=== PATIENT | female | born 1995 | race Caucasian/White ===

== ENCOUNTER 2017-06-03 23:49 | Emergency (ER) | payer MEDICAID ==
[~2017-06-03] VITALS: Ht 152.4 cm; Wt 68.0 kg
[2017-06-03 23:50] VITALS: BP 115/60
== END 2017-06-04 00:35 | disposition left against medical advice (07) ==
LOC: ER 23:49
DX: R10.9 Unspecified abdominal pain (principal); R19.7 Diarrhea, unspecified; Z53.21 Procedure and treatment not carried out due to patient leaving prior to being seen by health care provider

== ENCOUNTER 2022-06-15 11:34 | Observation (INO) | payer MEDICAID ==
[~2022-06-15] VITALS: Ht 157.5 cm; Wt 68.9 kg
== END 2022-06-15 13:50 | disposition home or self-care (01) ==
LOC: 8 EST LDRP 11:34
PROVIDERS: ADMIT Obstetrics & Gynecology; ATTEND Obstetrics & Gynecology
DX: O36.5930 Maternal care for other known or suspected poor fetal growth, third trimester, not applicable or unspecified (principal); Z3A.38 38 weeks gestation of pregnancy
CPT/HCPCS: 59025; 76805; 76818; G0378; 99281